=== PATIENT | female | born 1990 ===

== ENCOUNTER 2024-11-13 17:53 | Emergency (ER) | payer SELFPAY ==
[2024-11-13 17:54] VITALS: BP 160/79; PULSE 96; RESP 20; TEMP 39; O2SAT 98
[2024-11-13 17:58] VITALS: BP 149/86; PULSE 91; RESP 19; TEMP 39; O2SAT 100
--- NOTE | 2024-11-13 19:09 | EX.ED.DYSGE1 ---
HPI History of Present Illness Chief Complaint: Fever Narrative Narrative: When I had gone to see the patient he was in [place] for bed based on acuity and census, it appears that the patient had eloped. I had initially reviewed her chart and she was here for fever, and swab obtained per protocol. She had influenza A. Disposition is eloped. PFSH PFSH Allergy/AdvReac Type Severity Reaction Status Date / Time No Known Allergies Allergy Verified 11/13/24 18:02 Social History Smoking Status: Never smoker EXAM Physical Exam Const Vital Signs: 11/13/24 17:54 11/13/24 17:58 11/13/24 18:32 Temperature 102.2 F H 102.2 F H Temperature Source Temporal Temporal Pulse Rate 96 91 Respiratory Rate 20 H 19 H Respiratory Effort Normal Non-Labored Respiratory Pattern Normal Blood Pressure 160/79 H 149/86 H Blood Pressure Mean 106 107 Pulse Ox 98 100 Oxygen Delivery Method Room Air Room Air Discharge Plan Triage Chief Complaint: Fever ED Provider: Hitesh Dennis Dx/Rx/DC Orders Print Language: Martiniquais
== END 2024-11-13 19:24 | disposition left against medical advice (07) ==
LOC: ED 19:23
DX: J10.1 Influenza due to other identified influenza virus with other respiratory manifestations (principal); Z53.29 Procedure and treatment not carried out because of patient's decision for other reasons
CPT/HCPCS: 87631; 99284